=== PATIENT | male | born 1990 | race Caucasian/White ===

== ENCOUNTER 2018-09-24 03:02 | Emergency (ER) | payer OTHER ==
[~2018-09-24] VITALS: Ht 172.7 cm; Wt 63.5 kg
[2018-09-24 03:10] VITALS: BP 116/72
[2018-09-24] MEDS ORDERED: ACETAMINOPHEN 325 MG TABLET ONE (03:14)
[2018-09-24] MEDS ORDERED: ACETAMINOPHEN 325 MG TABLET PO ONE (03:30)
== END 2018-09-24 05:35 | disposition home or self-care (01) ==
LOC: ER 03:09
DX: M23.8X1 Other internal derangements of right knee (principal); F10.129 Alcohol abuse with intoxication, unspecified; Y90.9 Presence of alcohol in blood, level not specified
CPT/HCPCS: 73564-TC